=== PATIENT | female | born 1975 | race Caucasian/White ===

== ENCOUNTER 2021-02-28 06:19 | Day surgery (SDC) | payer BC ==
[2021-02-28] MEDS ORDERED: Lactated Ringers 1,000 ML IV SCH (06:30)
[2021-02-28] MEDS ORDERED: DIPRIVAN 200 MG/20 ML IV ONE ×2 (07:57→08:00)
[2021-02-28] MEDS ORDERED: Versed 2 MG/2 ML Injection ONE (07:57)
[2021-02-28 08:56] VITALS: O2SAT 97
[2021-02-28 09:02] VITALS: BP 152/98; PULSE 91
--- NOTE | 2021-02-28 09:54 | OP ---
SURGERY DATE/TIME: 02/28/2021 0758 PREOPERATIVE DIAGNOSES: 1) Screening colonoscopy. 2) Family history of colon cancer. POSTOPERATIVE DIAGNOSES: 1) Normal colon. 2) Moderate internal hemorrhoids. PROCEDURE: Colonoscopy. SURGEON: Moe Mei M.D. ANESTHESIA: MAC by [employer] CRNA. ESTIMATED BLOOD LOSS: None. SPECIMENS: None. DESCRIPTION OF PROCEDURE: After informed written consent was obtained, the patient was taken to the endoscopy suite. She was placed in left lateral decubitus position. Anesthesia was titrated to desired level of consciousness. A digital rectal exam was performed and showed some external hemorrhoids but normal sphincter tone and no internal lesions. The scope was inserted into the rectum and sequentially the entire colonic mucosa was traversed. The level of cecum was reached and verified with direct visualization of ileocecal valve. Upon withdrawal careful mucosal inspection revealed no mucosal abnormalities, no polyps or other lesion. Prep was noted to be good. Prior to withdrawal retroflexion was performed and showed moderate internal hemorrhoids, no active bleeding. No other lesions were encountered. The scope was removed and the patient was transferred to the recovery room in good condition.
== END 2021-02-28 09:11 | disposition home or self-care (01) ==
LOC: SDC 06:19
PROVIDERS: ATTEND Family Medicine
DX: Z12.11 Encounter for screening for malignant neoplasm of colon (principal); Z80.0 Family history of malignant neoplasm of digestive organs; K64.8 Other hemorrhoids
CPT/HCPCS: J2250; J2704